=== PATIENT | male | born 1960 | race Caucasian/White ===

== ENCOUNTER 2017-06-27 08:07 | Inpatient (IN) | payer BC ==
[~2017-06-27] VITALS: Ht 182.9 cm; Wt 84.8 kg
[~2017-06-27 08:07] MED LIST: ZOCOR40 MG PO
[2017-06-27] MEDS ORDERED: TOPROL XL 25MG25 MG PO (08:36)
[2017-06-27] MEDS ORDERED: LIPITOR20 MG PO (08:36)
[2017-06-27] MEDS ORDERED: HYZAAR 25 MG-101 TAB PO (08:37)
[2017-06-27] MEDS ORDERED: GLUCOSAMINE/CHO1 CA4 PO (08:38)
[2017-06-27] MEDS ORDERED: MASON NATURAL1200 MG PO (08:39)
[2017-06-27] MEDS ORDERED: MULTI VITAMINS1 TAB PO (08:40)
[2017-06-27] MEDS ORDERED: OCUVITE1 TA1 PO (08:41)
[2017-06-27] MEDS ORDERED: ADVIL200 MG PO (08:42)
[2017-06-27] MEDS ORDERED: CLARITIN-D 10 M1 T24 PO (08:43)
[2017-06-27] MEDS ORDERED: NASACORT OTC NS (08:47)
[2017-06-27 09:13] VITALS: BP 131/90; PULSE 76; TEMP 98.9
[2017-06-27 09:23] LABS: BASO # 0.1 (0.0-0.2); BASO % 1.3 % (0.0-2.0); EOS # 0.6 (0.0-0.7); EOS % 12.8 % (0-4.0); GRAN # 2.1 (1.4-6.5); GRAN % 44.2 % (42.2-75.2); HEMATOCRIT 44.9 % (42.0-52.0); HEMOGLOBIN 15.1 g/dl (13.5-18.0); LYMPH # 1.5 (1.2-3.4); LYMPH % 31.1 % (20.0-51.0); MEAN CELL VOLUME 88 fl (80.0-100.0); MEAN CORPUSCULAR HEMOGLOBIN 30 pg (27.0-31.0); MEAN CORPUSCULAR HGB CONC 34 g/dl (33.0-37.0); MEAN PLATELET VOLUME 9.1 fl (7.4-10.4); MONO # 0.5 (0.1-0.6); MONO % 10.4 % (1.7-9.3); PLATELET COUNT 223 K/mm3 (130-400); RED BLOOD COUNT 5.08 M/mm3 (4.20-5.60); REDCELL DISTRIBUTION WIDTH-CV 12.7 % (11.5-14.5); WHITE BLOOD COUNT 4.7 K/mm3 (4.8-10.8)
[2017-06-27 09:27] LABS: PROTHROMBIN TIME 10.8 SECONDS (9.7-12.8)
[2017-06-27 09:37] LABS: ADJUSTED CALCIUM 9.3 mg/dL (8.4-10.2); ALBUMIN 4.6 gm/dL (3.5-5.0); BILIRUBIN,TOTAL 0.7 mg/dL (0.0-1.0); CALCIUM 9.8 mg/dL (8.4-10.2); CREATININE, serum 1.15 mg/dL (0.66-1.25); MAGNESIUM 1.8 mg/dL (1.6-2.3); POTASSIUM 5.3 mmol/L (3.4-5.0); TOTAL PROTEIN 7.7 gm/dL (6.4-8.2)
[2017-06-27 11:14] VITALS: BP 137/86; PULSE 67; TEMP 98.5
[2017-06-27 15:50] VITALS: BP 140/82; PULSE 67
[2017-06-27 20:28] VITALS: BP 124/79; PULSE 68; TEMP 97.9
[2017-06-28] VITALS (7 sets, daily range): BP systolic 113–135; BP diastolic 65–85; PULSE 50–63; TEMP 97.7–98.6
[2017-06-28 08:16] LABS: PROTHROMBIN TIME 10.5 SECONDS (9.7-12.8)
[2017-06-28 08:24] LABS: CALCIUM 9.8 mg/dL (8.4-10.2); CREATININE, serum 0.88 mg/dL (0.66-1.25); MAGNESIUM 1.8 mg/dL (1.6-2.3); POTASSIUM 4.8 mmol/L (3.4-5.0)
[2017-06-29 08:23] LABS: CALCIUM 9.6 mg/dL (8.4-10.2); CREATININE, serum 0.85 mg/dL (0.66-1.25); MAGNESIUM 1.7 mg/dL (1.6-2.3); POTASSIUM 4.5 mmol/L (3.4-5.0)
[2017-06-29 08:27] LABS: INR 0.9 (0.8-3.0); PROTHROMBIN TIME 10.4 SECONDS (9.7-12.8)
[2017-06-29 08:28] VITALS: BP 133/84; PULSE 60; TEMP 98.5
[2017-06-29] MEDS ORDERED: BETAPACE AF80 MG/TA1 PO (11:08)
[2017-06-29] MEDS ORDERED: HYZAAR 50-12.1 UDTAB PO (11:11)
[2017-06-29] MEDS ORDERED: CLARITIN 1010 MG/TAB PO (11:12)
== END 2017-06-29 11:44 | disposition home or self-care (01) | DRG 310 ==
LOC: MEDICAL 08:07
PROVIDERS: Internal Medicine Cardiovascular Disease
DX: I48.0 Paroxysmal atrial fibrillation (principal); I10 Essential (primary) hypertension; E78.2 Mixed hyperlipidemia; Z87.891 Personal history of nicotine dependence

== ENCOUNTER 2020-04-26 12:41 | Day surgery (SDC) | payer BC ==
[~2020-04-26] VITALS: Ht 182.9 cm; Wt 78.4 kg
[~2020-04-26 12:41] MED LIST changes: +ADVIL200 MG PO; +BETAPACE AF80 MG/TA1 PO; +CLARITIN 1010 MG/TAB PO; +CLARITIN-D 10 M1 T24 PO; +GLUCOSAMINE/CHO1 CA4 PO; +HYZAAR 25 MG-101 TAB PO; +HYZAAR 50-12.1 UDTAB PO; +LIPITOR20 MG PO; +MASON NATURAL1200 MG PO; +MULTI VITAMINS1 TAB PO; +NASACORT OTC NS; +OCUVITE1 TA1 PO; +TOPROL XL 25MG25 MG PO
[2020-04-26 13:20] VITALS: BP 154/85; PULSE 44; TEMP 98.5
[2020-04-26] MEDS ORDERED: LUTEIN6 MG PO (13:33)
[2020-04-26] MEDS ORDERED: DUO-KAPS1 CAP PO (13:34)
[2020-04-26] MEDS ORDERED: GLUCOSAMINE CHO1 TAB PO (13:35)
[2020-04-26] MEDS ORDERED: VITAMIN D250 MCG PO (13:37)
[2020-04-26] MEDS ORDERED: EPA FISH OIL1 SGL PO (13:38)
[2020-04-26] MEDS ORDERED: ADVIL200 MG PO (13:39)
[2020-04-26] MEDS ORDERED: TRICOR145 MG PO (13:40)
[2020-04-26] MEDS ORDERED: BETAPACE 80MG80 MG PO ×2 (13:41→13:44)
[2020-04-26] MEDS ORDERED: COZAAR100 MG PO (13:41)
[2020-04-26] MEDS ORDERED: HCTZ 25MG TAB25 MG PO (13:42)
--- NOTE | 2020-04-26 13:46 | NUR ---
TO CHRISTIANO AT 1251- CALL LIGHT IN REACH WILL CALL [facility] FOR [facility]
[2020-04-26] MEDS ORDERED: ULTRAM 50MG TAB50 MG PO (16:25)
[2020-04-26 17:25] VITALS: BP 141/90; PULSE 53; TEMP 98.8
--- NOTE | 2020-04-26 17:25 | NUR ---
TO RM 8 PER CART FROM PACU. ALERT ORIENTED X3, TALKING TO STAFF. INCISION SITES CLEAN DRY INTAC. [place]O SET OVER SITES. DENIES N/V. STATED PAIN IS "NOT TO BAD" AND REFUSED ANY PAIN MED AT THIS TIME.
[2020-04-26 17:40] VITALS: BP 148/86; PULSE 52
--- NOTE | 2020-04-26 17:40 | NUR ---
RECEIVED WATER AND TAKING SIPS.
[2020-04-26 17:45] VITALS: TEMP 98.8
[2020-04-26 17:55] VITALS: BP 154/88; PULSE 55
--- NOTE | 2020-04-26 17:55 | NUR ---
RECEIVED 2ND CUP OF WATER AND APPLE SAUCE. SITTING UP AND TOLERATING WELL.
[2020-04-26 18:15] VITALS: BP 152/89; PULSE 51
--- NOTE | 2020-04-26 18:15 | NUR ---
ATE 100% AND TOLERATED WELL. AMBULATED TO BATHROOM WITH STANDBY ASSIST. VOIDED AND AMBULATED BACK TO . PATIENT STATED HE FELT HE WAS READY TO GO HOME. CALLED [facility].
--- NOTE | 2020-04-26 18:30 | NUR ---
RECEIVED DISCHARGE INSTRUCTIONS AND VERBALIZED UNDERSTANDING. DISCONTINUED IV AND INT- CATHETER INTACT. PATIENT GETTING DRESSED
--- NOTE | 2020-04-26 18:45 | NUR ---
DISCHARGED PER WC BY NURSING STAFF TO PRIVATE CAR IN CARE OF [place].
== END 2020-04-26 18:56 | disposition home or self-care (01) ==
LOC: SDCO 12:41
DX: K40.90 Unilateral inguinal hernia, without obstruction or gangrene, not specified as recurrent (principal); G43.909 Migraine, unspecified, not intractable, without status migrainosus; I10 Essential (primary) hypertension; E78.5 Hyperlipidemia, unspecified; I48.91 Unspecified atrial fibrillation; G89.29 Other chronic pain; Z88.0 Allergy status to penicillin; Z88.5 Allergy status to narcotic agent; Z79.82 Long term (current) use of aspirin; Z87.891 Personal history of nicotine dependence
CPT/HCPCS: C1781; J0360; J0690; J1100; J1885; J2405; J2704; J3010; J7120